=== PATIENT | male | born 1950 | race Caucasian/White ===

== ENCOUNTER 2020-12-29 09:56 | Inpatient (IN) | payer OTHER ==
[~2020-12-29] VITALS: Ht 165.1 cm; Wt 68.8 kg
--- NOTE | ~2020-12-29 | EMS ---
[facility] [address] [facility] [place] [address] EMS Patient Care Report Name: TOOTIE PRIETO Room: [facility]#: [id number] Admission: Attend Phys: Discharge: Date of : 50 Report #: [id number] THIS REPORT FOR: //name// Report Transmitted: 12/29/2020 09:33 EMS Care Summary RIC Myah PRANAV Incident [id number] @ 12/29/2020 09:15 Incident Location [address] [place] [address] Patient TOOTIE PRIETO Male, 70 Years 1950 Patient Address [address] [place] [address] Patient History Chronic Obstructive Pulmonary Disease (COPD),Hypertension (HTN),Myocardial Infarction (ME),Presence of coronary angioplasty implant and graft, Patient Allergies No known allergies, Patient Medications Amlodipine, Atorvastatin, Furosemide, Metoprolol, prednisolone, Chief Complaint Shortness of Breath Disposition Transported No Lights/[place] Reason Breathing Problem Transported To [facility] Narrative Dispatched to address noted for shortness of breath. [facility] en route and on scene at time noted. Arrived and found patient, alert and orient. Patient was sitting up in a chair and stated that him and his have tested positive for [facility] [address] [facility] [place] [address] EMS Patient Care Report Name: TOOTIE PRIETO Room: [facility]#: [id number] Admission: Attend Phys: Discharge: Date of : 50 Report #: [id number] COVID-19 two week ago and have not have any treatment for it. patient has a history of COPD and stated that he has been short of breath for the last 1 week. patients O2 saturation was in the low 80% as noted and lungs where assessed as noted. patient has an obvious fever as well. Patient stated he normally goes to [facility] for care but due to high volume status he agreed to [facility] for care. Patient was able to sit on stretcher and was buckled in. Patient was placed on O2 as noted. Once in ambulance, vitals where taken at time noted. 4 lead ECG obtained and IV with blood labs and blood glucose was obtained as well. Patient was given fluids as noted as well. While en route, vitals where taken at time noted and no major change noted while en route. radio report given at time noted. Arrived and took patient to room 4. Patient was moved to bed and RN was given verbal report. RN signed for patient and patient gave verbal consent. END REPORT EMT-P Jermain Ching Initial Vitals @09:28SpO2: 89, @09:30SpO2: 88, @09:30SpO2: 87, @09:35SpO2: 90, @09:40SpO2: 93, @09:45SpO2: 83, @09:46SpO2: 84, @09:28P: 81,R: 41,BP: 153/71, @09:47P: 79,R: 40,BP: 135/65, @09:62VyOR6: 20, @09:46DpKP0: 22, @09:13RrVI0: 26, @09:08XwLL6: 20, @09:36UhSR2: 21, @09:83BhQU5: 23, @09:25CyFB8: 22, @09:58XaRL3: 21, @09:28GCS: 15, @09:47GCS: 15, @09:21 @09:36Glucose: 115, Assessments @09:21MENTAL:SKIN:HEENT:LUNG SOUNDS:ABDOMEN:PELVIS//GI:EXTREMITIES:PULSE:NEURO: Impression COVID-19 - Confirmed [place] [address] EMS Patient Care Report Name: TOOTIE PRIETO Room: [facility]#: [id number] Admission: Attend Phys: Discharge: Date of : 50 Report #: [id number] @09:25Oxygen Complications: ,Response: Unchanged@09:35 cc () Site: Forearm-LeftResponse: UnchangedSucceeded@09:22LQQK7 digital capnographyResponse: UnchangedSucceeded@09:60RWDC3 digital capnographyResponse: UnchangedSucceeded@09:46PXGR0 digital capnographyResponse: UnchangedSucceeded@09:30NZCX4 digital capnographyResponse: UnchangedSucceeded@09:31DQQJ9 digital capnographyResponse: UnchangedSucceeded@09:04YEGV0 digital capnographyResponse: UnchangedSucceeded@09:15PODP1 digital capnographyResponse: UnchangedSucceeded@09:72UCAB0 digital capnographyResponse: UnchangedSucceeded Timeline 09:15,Call Received 09:15,Dispatch Notified 09:15,Psap Call 09:15,Dispatched 09:15,En Route 09:18,On Scene 09:21,At Patient 09:21,BP: / M,PULSE: ,RR: R,SPO2: Ox,ETCO2: ,BG: ,PAIN: ,GCS: , 09:25,Oxygen Complications: ,,Response: Unchanged 09:28,ETCO2 digital capnography,Response: UnchangedSucceeded, 09:28,BP: / M,PULSE: ,RR: R,SPO2: 89 Ox,ETCO2: ,BG: ,PAIN: ,GCS: , 09:28,BP: 153/71 M,PULSE: 81,RR: 41 R,SPO2: Ox,ETCO2: ,BG: ,PAIN: ,GCS: , 09:28,BP: / M,PULSE: ,RR: R,SPO2: Ox,ETCO2: 20 ,BG: ,PAIN: ,GCS: , 09:28,BP: / M,PULSE: ,RR: R,SPO2: Ox,ETCO2: ,BG: ,PAIN: ,GCS: 15, 09:30,ETCO2 digital capnography,Response: UnchangedSucceeded, 09:30,ETCO2 digital capnography,Response: UnchangedSucceeded, 09:30,BP: / M,PULSE: ,RR: R,SPO2: 88 Ox,ETCO2: ,BG: ,PAIN: ,GCS: , 09:30,BP: / M,PULSE: ,RR: R,SPO2: 87 Ox,ETCO2: ,BG: ,PAIN: ,GCS: , 09:30,BP: / M,PULSE: ,RR: R,SPO2: Ox,ETCO2: 22 ,BG: ,PAIN: ,GCS: , 09:30,BP: / M,PULSE: ,RR: R,SPO2: Ox,ETCO2: 26 ,BG: ,PAIN: ,GCS: , 09:35,ETCO2 digital capnography,Response: UnchangedSucceeded, 09:35,BP: / M,PULSE: ,RR: R,SPO2: 90 Ox,ETCO2: ,BG: ,PAIN: ,GCS: , 09:35,BP: / M,PULSE: ,RR: R,SPO2: Ox,ETCO2: 20 ,BG: ,PAIN: ,GCS: , 09:35, cc Site: Forearm-Left,Response: UnchangedSucceeded, 09:36,BP: / M,PULSE: ,RR: R,SPO2: Ox,ETCO2: ,B,PAIN: ,GCS: , 09:37,Depart Scene 09:40,ETCO2 digital capnography,Response: UnchangedSucceeded, 09:40,BP: / M,PULSE: ,RR: R,SPO2: 93 Ox,ETCO2: ,BG: ,PAIN: ,GCS: , 09:40,BP: / M,PULSE: ,RR: R,SPO2: Ox,ETCO2: 21 ,BG: ,PAIN: ,GCS: , 09:45,ETCO2 digital capnography,Response: UnchangedSucceeded, 09:45,BP: / M,PULSE: ,RR: R,SPO2: 83 Ox,ETCO2: ,BG: ,PAIN: ,GCS: , 09:45,BP: / M,PULSE: ,RR: R,SPO2: Ox,ETCO2: 23 ,BG: ,PAIN: ,GCS: , 09:46,ETCO2 digital capnography,Response: UnchangedSucceeded, 09:46,BP: / M,PULSE: ,RR: R,SPO2: 84 Ox,ETCO2: ,BG: ,PAIN: ,GCS: , 09:46,BP: / M,PULSE: ,RR: R,SPO2: Ox,ETCO2: 22 ,BG: ,PAIN: ,GCS: , [place] [address] EMS Patient Care Report Name: TOOTIE PRIETO Room: [facility].#: [id number] Admission: Attend Phys: Discharge: Date of : 50 Report #: [id number] 09:47,ETCO2 digital capnography,Response: UnchangedSucceeded, 09:47,BP: 135/65 M,PULSE: 79,RR: 40 R,SPO2: Ox,ETCO2: ,BG: ,PAIN: ,GCS: , 09:47,BP: / M,PULSE: ,RR: R,SPO2: Ox,ETCO2: 21 ,BG: ,PAIN: ,GCS: , 09:47,BP: / M,PULSE: ,RR: R,SPO2: Ox,ETCO2: ,BG: ,PAIN: ,GCS: 15, 09:51,At Destination 10:06,Call Closed Disclaimer v1.1 Copyright 2020 [employer] This EMS Care Summary contains data elements from the applicable legal record (which may be displayed differently). It is designed to provide pertinent information for the following purposes: continuity of care, clinical quality, and state data reporting. The complete legal record is available to ED staff and administrators of the receiving hospital in [employer] Patient Tracker. All data is provided "as is."
[2020-12-29 10:00] VITALS: BP 139/69
[2020-12-29 10:24] LABS: ABSOLUTE LYMPHOCYTES 0.8 thou/uL (0.8-5.3); ABSOLUTE MONOCYTES 0.1 thou/uL (0.0-1.2); ABSOLUTE NEUTROPHILS 3.1 thou/uL (1.6-8.1); BASOPHILS 0.2 %; HEMATOCRIT 35.2 % (42.0-52.0); HEMOGLOBIN 11.4 gm/dL (14.0-18.0); LYMPHOCYTES 20.2 %; MCH 28.3 pg (26.0-34.0); MCHC 32.3 g/dL (28.0-37.0); MCV 87.8 fL (80.0-100.0); MONOCYTES 2.9 %; MPV 9.9 fl. (7.2-11.1); NUCLEATED RBCS 0 /100WBC; PLATELET COUNT* 83 thou/uL (150-400); POLYS 76.7 %; RBC 4.01 mil/uL (4.50-6.00); RDW-CV 14.4 % (10.5-14.5); WBC 4.1 thou/uL (4.0-11.0)
[2020-12-29 10:37] LABS: CALCIUM 7.6 mg/dL (8.5-10.1); CREATININE 2.7 mg/dL (0.6-1.3); POTASSIUM 4.7 mmol/L (3.5-5.1)
[2020-12-29] MEDS ORDERED: ASA81BEC PO (10:39)
[2020-12-29] MEDS ORDERED: NORVASC5 MG PO (10:39)
[2020-12-29] MEDS ORDERED: VITAMIN C500 M2 PO (10:39)
[2020-12-29] MEDS ORDERED: VITAMIN B COMP1 EACH PO (10:40)
[2020-12-29] MEDS ORDERED: LIPITOR10 MG PO (10:40)
[2020-12-29] MEDS ORDERED: CENTRUM SPECIA PO (10:41)
[2020-12-29] MEDS ORDERED: BUTALB-ACETAMI1 EAC2 PO (10:41)
[2020-12-29] MEDS ORDERED: VITAMIN D3125 MC1 PO (10:42)
[2020-12-29] MEDS ORDERED: IRON325 M1 PO (10:43)
[2020-12-29] MEDS ORDERED: IPRAT-ALBUT 0.5-3 ML (10:44)
[2020-12-29] MEDS ORDERED: TOPROL XL25 MG PO (10:44)
[2020-12-29] MEDS ORDERED: REMERON30 M1 PO (10:45)
[2020-12-29] MEDS ORDERED: SINGULAIR 10 MG10 M1 PO (10:45)
[2020-12-29] MEDS ORDERED: ONDANSETRON ODT8 MG PO (10:46)
[2020-12-29] MEDS ORDERED: NITROSTAT0.4 M1 (10:47)
[2020-12-29 10:48] LABS: ALBUMIN 2.6 g/dL (3.4-5.0); MAGNESIUM 1.8 mg/dL (1.8-2.4); TOTAL BILIRUBIN 0.1 mg/dL (<0.1-1.0); TOTAL PROTEIN 6.5 g/dL (6.4-8.2)
[2020-12-29] MEDS ORDERED: SERTRALINE HCL100 MG PO (10:49)
[2020-12-29] MEDS ORDERED: sodium chloride PO (10:49)
[2020-12-29] MEDS ORDERED: FLOMAX0.4 MG PO (10:50)
[2020-12-29] MEDS ORDERED: CHOLESTEROL1 GM (10:51)
[2020-12-29] MEDS ORDERED: [UNRECOGNIZED DRUG - OTHER] (10:52)
[2020-12-29] MEDS ORDERED: LORAZEPAM 0.50.5 MG PO (10:52)
[2020-12-29 12:21] VITALS: BP 141/71
[2020-12-29 13:12] VITALS: BP 137/65
[2020-12-29 16:22] VITALS: BP 131/65
--- NOTE | 2020-12-29 17:37 | NUR ---
PT ARRIVED ON UNIT AT 1234 ASSUMED CARE FROM NURSE VARUN. PT IS A/OX4, PLEASANT AND COOPERATIVE. HR IS NSR ON TELE, HE WAS ON 4 L BUT REQURED MORE TO MAINTAIN SATS ABOVE 90% PT WAS PLACE ON 8L HFNC AND IS TOLERATING WELL. PT IS UP WITH SBA BECAUSE OF IV AND OXYGEN. PT HAD NOT VOIDED FROM TIME OF BEING ADMITTED IN ER THIS MORNING UNTIL 1700 AFTER I ASKED HIM TO TRY, HE HAD OUT 550 ML OF CLEAR YELLOW URINE IN HIS URINAL.
[2020-12-29 20:00] VITALS: BP 122/71
[2020-12-30 00:27] VITALS: BP 156/77
[2020-12-30 04:37] VITALS: BP 141/63
[2020-12-30 05:15] LABS: HEMATOCRIT 32.9 % (42.0-52.0); HEMOGLOBIN 11.1 gm/dL (14.0-18.0); MCH 29.3 pg (26.0-34.0); MCHC 33.7 g/dL (28.0-37.0); MCV 86.8 fL (80.0-100.0); MPV 8.7 fl. (7.2-11.1); RBC 3.79 mil/uL (4.50-6.00); RDW-CV 14.4 % (10.5-14.5); WBC 7.3 thou/uL (4.0-11.0)
--- NOTE | 2020-12-30 05:18 | NUR ---
ASSUMED PT CARE AT APPROX 1930. PT IS AWAKE AND ORIENTED X4. PT IS TRACING SR ON THE LASER OPERATOR. O2 SUPPORT INCREASED TO 15L NRB, TO MAINTAIN spO2 >90%, PT DESATS WITH ACTIVITY AND WHEN TALKING. PT IS CLOSELY MONITORED. FALL PRECAUTIONS IN PLACE. CALL LIGHT WITHIN REACH. HOURLY ROUNDING DONE FOR PT SAFETY.
[2020-12-30 05:33] LABS: CALCIUM 8.1 mg/dL (8.5-10.1); CREATININE 2.5 mg/dL (0.6-1.3); POTASSIUM 4.7 mmol/L (3.5-5.1)
[2020-12-30 07:57] VITALS: BP 97/55
--- NOTE | 2020-12-30 10:02 | EKG ---
[place] [address] ELECTROCARDIOGRAM REPORT Name: TOOTIE PRIETO Room: [address] ADM IN .R.#: [id number] Admission: 12/29/20 Attend Phys: Naeem Dolan Discharge: Date of : 50 Date of Service: 12/29/20 1059 Report #: [id number] THIS REPORT FOR: //name// [facility] ED Test Date: 2020-12-29 Test Time: 10:59:09 Pat Name: TOOTIE PRIETO Department: Room: [facility] Gender: M Hop Farmer: CD : 1950 Requested By: Wm Oliva Order Number: [id number] MD: Jas Palacios Measurements Intervals [place] Rate: 81 P: 27 [place]: 186 QRS: 13 QRSD: 182 T: -49 QT: 371 QTc: 431 Interpretive Statements Sinus rhythm Multiple ventricular premature complexes Probable left atrial enlargement Nonspecific intraventricular conduction delay Borderline abnrm T, anterolateral leads No previous ECG available for comparison Electronically Signed On 12-30-2020 10:02:21 CDT by Jas Palacios [email or web address] <ELECTRONICALLY SIGNED> By: Jas Palacios MD, [facility] 12/30/20 1002 1059 1059 Jas Palacios MD, [facility] /EPI
[2020-12-30 12:23] VITALS: BP 95/59
--- NOTE | 2020-12-30 13:53 | NUR ---
CM spoke with Pt's S/O via phone. Pt and SO reside at [facility]. Per SO, she plans to move into her own apartment within the next week. SO plans to continue to help Pt at home with meals. Pt is normally independent. A&O. Per SO, Pt was scheduled to have an appt with a therapist tomorrow, PCP thinks Pt may have dementia. Per SO, Pt is paranoid at times. No DME. No hx of HH or SNF. Pt is vaccinated. On a NRB. Continue steriods and ivabx. Goal is home at [place]. CM following. Jacqueline Salter (SO) [phone] Dionte GonzalesSpears (son)[phone]
[2020-12-30 15:51] VITALS: BP 124/49
--- NOTE | 2020-12-30 18:48 | NUR ---
Pt SOA, coughing early in shift; O2 sats upper 70s to mid 80s. NRB mask added to existing 15L HFC to achieve and maintain O2 sats mid 90s. Pt continues to desat to 80s on 15L HFC alone, especially during meals, so NRB mask on for most of shift. Pt's diet changed to accommodate intolerance/allergy to glutein, eggs, and dairy. Pt reports more comfortable today with added O2 (via NRB mask). Otherwise, VSS. Will continue to monitor.
[2020-12-30 19:30] VITALS: BP 132/67
[2020-12-31] VITALS: BP 130/55
[2020-12-31 04:00] VITALS: BP 128/68
--- NOTE | 2020-12-31 05:30 | NUR ---
PT SLEPT ON AND OFF THIS SHIFT. ASSESSMENT DOCUMENTED. MEDS GIVEN PER E-MAR. IV PATENT. NO REPORTS OF PAIN. PTS O2 NEEDS INCREASED FROM 15L NC WITH 15L NRB TO HHFNC 55L AT 100%. PT STARTED DESATTING AGAIN AND SOUNDED REALLY COARSE, NOTIFIED, ORDERS RECIEVED. PT CONTINUED TO DESAT RUNNING 83-85%, NOTIFIED, PT PLACED ON BIPAP. PRN ANXIETY MEDS GIVEN PER E-MAR WITH SOME RELIEF. CALL LIGHT WITHIN REACH, PT ABLE TO MAKE NEEDS KNOWN. WILL CONTINUE WITH PLAN OF CARE.
[2020-12-31 06:05] LABS: HEMOGLOBIN 10.4 gm/dL (14.0-18.0); MCH 28.8 pg (26.0-34.0); MCHC 33.5 g/dL (28.0-37.0); MCV 85.7 fL (80.0-100.0); MPV 9.3 fl. (7.2-11.1); RBC 3.62 mil/uL (4.50-6.00); RDW-CV 14.6 % (10.5-14.5)
[2020-12-31 06:30] LABS: CREATININE 2.6 mg/dL (0.6-1.3); POTASSIUM 4.7 mmol/L (3.5-5.1)
[2020-12-31 08:00] VITALS: BP 123/60
[2020-12-31 12:00] VITALS: BP 121/63
--- NOTE | 2020-12-31 14:02 | NUR ---
Covid positive.On 55L fio2 100%. DPOA completed, on chart, Pt appointed his son.
[2020-12-31 16:00] VITALS: BP 121/67
[2020-12-31 20:00] VITALS: BP 124/59
[2021-01-01 00:12] VITALS: BP 121/61
[2021-01-01 03:56] VITALS: BP 100/45
--- NOTE | 2021-01-01 04:54 | NUR ---
PT SLEPT ON AND OFF THIS SHIFT. ASSESSMENT DOCUMENTED. MEDS GIVEN PER E-JUL. IV PATENT. NO REPORTS OF PAIN. FALL PRECAUTIONS IN PLACE. PT ON HEATED HIGH FLOW NC AT 55L 100%, PT DESATS IN SLEEP TO LOW 80'S. PT REFUSING BIPAP, PT ENCOURAGED TO SLEEP PRONE OR ON SIDE. PTS O2 SATS INCREASE WHEN ON SIDE. PT ABLE TO MAKE NEEDS KNOWN. WILL CONTINUE WITH PLAN OF CARE.
[2021-01-01 07:14] LABS: HEMATOCRIT 32.5 % (42.0-52.0); HEMOGLOBIN 10.6 gm/dL (14.0-18.0); MCH 28.3 pg (26.0-34.0); MCHC 32.8 g/dL (28.0-37.0); MCV 86.2 fL (80.0-100.0); MPV 9.1 fl. (7.2-11.1); RBC 3.77 mil/uL (4.50-6.00); RDW-CV 14.4 % (10.5-14.5); WBC 8.3 thou/uL (4.0-11.0)
[2021-01-01 07:32] LABS: CALCIUM 8.1 mg/dL (8.5-10.1); CREATININE 2.6 mg/dL (0.6-1.3); POTASSIUM 4.6 mmol/L (3.5-5.1)
[2021-01-01 07:41] VITALS: BP 104/42
[2021-01-01 13:19] VITALS: BP 127/86
--- NOTE | 2021-01-01 13:31 | NUR ---
[facility] POSITIVE [facility] ANTIGEN TEST ON 12/22/20.
--- NOTE | 2021-01-01 14:35 | NUR ---
Covid positive. Anticipate dc in a few days. On 55L HHF. Bipap prn. Continue to wean
[2021-01-01 16:00] VITALS: BP 141/70
--- NOTE | 2021-01-01 18:49 | NUR ---
PT ALERT WITH SOME CONFUSION, PLEASANT AND COOPERATIVE. VSS, HE HAS BEEN UP IN HIS CHAIR THIS SHIFT, DENIES C/O PAIN OR DISCOMFORT.
[2021-01-01 19:10] VITALS: BP 133/65
[2021-01-02] VITALS: BP 145/65
--- NOTE | 2021-01-02 00:06 | NUR ---
ASSUMED CARE OF PT AT 1900. PT IS ALERT AND ORIENTED. VSS. PERRLA. NO COMPLAINTS OF PAIN. PT IS ON 95 PERCENT HEATED HIGH FLOW. PT IS IN SINUS RYTHM ON THE TELEMETRY. PT IS RESTING COMFORTABLY IN BED. RESPIRATIONS ARE EVEN AND NONLABORED. WILL CONTINUE TO MONITOR PT.
[2021-01-02 04:00] VITALS: BP 120/53
[2021-01-02 08:23] VITALS: BP 119/62
[2021-01-02 12:20] VITALS: BP 140/63
--- NOTE | 2021-01-02 13:31 | NUR ---
Covid positive. Will be inpt for several more days. Pt on 55L HHF, 96% fio2
[2021-01-02 19:50] VITALS: BP 121/65
--- NOTE | 2021-01-02 19:57 | NUR ---
Unable to place peripheral IV. PICC line initially ordered, but contraindicated due to renal function. Central line (RIJ) placed per surgery. Ferguson through procedure, pt began to desat to 70s, then to 60s. Pt did not tolerate trendelenberg position. Once central line placed, pt repositioned to semi-fowlers position but continued to hav low O2 sats in 70s. Once line sutured in, placed NRB mask over HHF but O2 sats [id number] to low 80s. Convinced patient to wear BIPAP until pt recovers. O2 sats mid to upper 90s on BIPAP. Pt remained on BIPAP for approx 3 hours, then back on HHF. Pt reports feeling much better by late afternoon. VSS. Central line placement confirmed per CXR. Will continue to monitor.
[2021-01-03] VITALS: BP 151/78
--- NOTE | 2021-01-03 01:31 | NUR ---
ASSUMED CARE OF PT AT 1900. PT IS ALERT AND ORIENTED. VSS. PERRLA. PT IS VERY SOA WHILE HE IS AWAKE. MANY TIMES DESATURATING INTO THE 70'S WITH ANY ACTIVITY. PT REFUSES BIPAP. PT IS IN SINUS RYTHM ON THE TELEMETRY. PT IS RESTING COMFORTABLY IN BED. RESPIRATIONS ARE EVEN AND NONLABORED. WILL CONTINUE TO MONITOR PT.
[2021-01-03 04:28] VITALS: BP 147/64
[2021-01-03 08:25] VITALS: BP 130/63
[2021-01-03 11:16] LABS: HEMATOCRIT 29.6 % (42.0-52.0); HEMOGLOBIN 9.7 gm/dL (14.0-18.0); MCH 28.1 pg (26.0-34.0); MCHC 32.7 g/dL (28.0-37.0); MCV 86.1 fL (80.0-100.0); MPV 8.4 fl. (7.2-11.1); NUCLEATED RBCS 0 /100WBC; PLATELET COUNT* 158 thou/uL (150-400); RBC 3.44 mil/uL (4.50-6.00); RDW-CV 14.4 % (10.5-14.5); WBC 9.5 thou/uL (4.0-11.0)
[2021-01-03 11:24] LABS: CALCIUM 8.1 mg/dL (8.5-10.1); CREATININE 2.9 mg/dL (0.6-1.3); POTASSIUM 3.9 mmol/L (3.5-5.1)
[2021-01-03 11:45] LABS: ABSOLUTE LYMPHOCYTES 0.6 thou/uL (0.8-5.3); ABSOLUTE NEUTROPHILS 8.9 thou/uL (1.6-8.1)
[2021-01-03 11:46] LABS: HYPOCHROMASIA 1+; PLATELET ESTIMATE ADEQUATE
[2021-01-03 11:47] LABS: BURR CELLS Occasional; MICROCYTES Occasional
[2021-01-03 12:15] VITALS: BP 142/67
--- NOTE | 2021-01-03 15:49 | NUR ---
Covid positive. Anticipate dc in a few days. On 55L, 97% fio2
[2021-01-03 16:12] VITALS: BP 126/59
--- NOTE | 2021-01-03 19:19 | NUR ---
Pt reports having a better day today. C/O pain to R side of head and R ear R/T positioning required for placement of IJ yesterday (see JUL). Up in chair for much of shift. VSS. On BIPAP for approx 2 hours this afternoon; tolerated well. Will continue to monitor.
[2021-01-03 19:50] VITALS: BP 120/54
[2021-01-04] VITALS (11 sets, daily range): BP systolic 100–171; BP diastolic 48–75
--- NOTE | 2021-01-04 02:50 | NUR ---
ASSUMED CARE OF PT AT 1900. PT IS ALERT AND ORIENTED. VSS. PERRLA. NO COMPLAINTS OF PAIN. PT WAS A 100 PERCENT FIO2 HEATED HIGH FLOW. PT IS NOW ON BIPAP SINCE ABOUT 2129. PT IS ON SINUS RYTHM ON THE TELEMETRY. PT IS RESTING COMFORTABLY IN BED. RESPIRATIONS ARE EVEN AND NONLABORED. WILL CONTINUE TO MONITOR PT.
--- NOTE | 2021-01-04 04:00 | NUR ---
PT IS NOW REFUSING TO WEAR BIPAP. PT IS BACK ON HEATED HIGH FLOW. 100 PERCENT FIO2 AND SPO2 IN THE 80'S.
[2021-01-04 07:07] LABS: BE -8.1 mmol/L (-2 to +3); PCO2 29.9 mmHg (35.0-45.0); pH 7.347 (7.340-7.450)
[2021-01-04 07:09] LABS: PO2 163.8 mmHg (75.0-100.0)
[2021-01-04 07:12] LABS: HEMATOCRIT 29.1 % (42.0-52.0); HEMOGLOBIN 9.5 gm/dL (14.0-18.0); MCHC 32.8 g/dL (28.0-37.0); MCV 85.3 fL (80.0-100.0); MPV 7.9 fl. (7.2-11.1); RBC 3.41 mil/uL (4.50-6.00); RDW-CV 13.9 % (10.5-14.5); WBC 12.5 thou/uL (4.0-11.0)
[2021-01-04 07:22] LABS: CREATININE 2.5 mg/dL (0.6-1.3); POTASSIUM 4.6 mmol/L (3.5-5.1)
[2021-01-04 07:27] LABS: ALBUMIN 1.7 g/dL (3.4-5.0); TOTAL BILIRUBIN 0.5 mg/dL (<0.1-1.0); TOTAL PROTEIN 5.5 g/dL (6.4-8.2)
--- NOTE | 2021-01-04 12:45 | NUR ---
Patient anxious and restless; improves somewhat with lorazepam. Required much convincing to wear BIPAP; desats to 70s & 80s on HHF @ max settings. Dr. Dolan rounded this morning, received order for IV furosemide one time dose. By late morning pt anxiety and resltessness worsening significantly. Dr. Dye consulted this morning; orders received for transfer to ICU for Precedex gtt for BIPAP tolerance. Otherwise, will intubate if needed. Pt transferred to ICU. Son updated of plan, pt status.
[2021-01-04 14:44] LABS: BE -7.3 mmol/L (-2 to +3); PCO2 36.4 mmHg (35.0-45.0); pH 7.316 (7.340-7.450)
[2021-01-04 14:52] LABS: PO2 134.5 mmHg (75.0-100.0)
[2021-01-05] VITALS (151 sets, daily range): BP systolic 90–142; BP diastolic 36–57
--- NOTE | 2021-01-05 08:04 | NUR ---
ASSESSMENT COMPLETED CHARTED. PT PUPILS UNEVEN. LEFT 2 ROUND/ RIGHT PUPIL IS OBLONG/OVAL AND NON-REACTIVE. PHYSICIAN NOTIFIED. ORDER RECEIVED FOR ROUTINE CONSULT TO NEUROLOGY. CONSULT CALLED IN AM. PT BP LOW, LEVOPHED STARTED AND TITRATED PER ORDERS. ROUNDING COMPLETED. NEEDS MET.
--- NOTE | 2021-01-05 12:19 | NUR ---
TOOK OVER PT CARE AT 0700. UPON INITIAL ASSESSMENT PT HAD NO CORNEAL REFLEX, HAD COUGH & GAG. UNABLE TO ILLICIT ANY MOTOR RESPONSE, R. PUPIL IS OVAL IN SHAPE WHILE L. PUPIL IS PINPOINT WITH NO REACTION. DR. ACOSTA AT BEDSIDE FOR INITIAL CONSULT. D/T LACK OF NEURO EXAM DR. ACOSTA ASKED FOR A SEDATION VACATION. ALL SEDATION WAS PAUSED AT 0920, HOURLY ASSESSMENTS WERE THEN PERFORMED. DR. ACOSTA CALLED AT 1030, THERE WERE NO CHANGES IN THE NEURO EXAM. 1120, CORNEAL/COUGH/GAG REFLEXES INTACT, STILL NO MOTOR RESPONSE. DR. ACOSTA AGAIN AT BEDSIDE, 1140, AGREES WITH ASSESSMENT. WILL RESTART SEDATION AT A LOWER RATE TO MAXIMIZE VENTILATION. VERSED WAS RESTARTED AT 2MG/HR, WILL CONTINUE TO ASSESS FOR FURTHER SEDATION NEEDS.
[2021-01-06] VITALS (116 sets, daily range): BP systolic 96–133; BP diastolic 39–57
[2021-01-06 12:39] LABS: ABSOLUTE BASOPHILS 0.1 thou/uL (0.0-0.2); ABSOLUTE LYMPHOCYTES 0.1 thou/uL (0.8-5.3); ABSOLUTE MONOCYTES 0.3 thou/uL (0.0-1.2); ABSOLUTE NEUTROPHILS 15.3 thou/uL (1.6-8.1); BASOPHILS 0.5 %; HEMATOCRIT 24.8 % (42.0-52.0); HEMOGLOBIN 8.1 gm/dL (14.0-18.0); LYMPHOCYTES 0.8 %; MCHC 32.9 g/dL (28.0-37.0); MCV 85.2 fL (80.0-100.0); MPV 7.9 fl. (7.2-11.1); NUCLEATED RBCS 0 /100WBC; RBC 2.91 mil/uL (4.50-6.00); RDW-CV 14.9 % (10.5-14.5); WBC 15.8 thou/uL (4.0-11.0)
[2021-01-06 12:50] LABS: ALBUMIN 1.5 g/dL (3.4-5.0); CALCIUM 6.9 mg/dL (8.5-10.1); POTASSIUM 5.5 mmol/L (3.5-5.1); TOTAL BILIRUBIN 0.3 mg/dL (<0.1-1.0); TOTAL PROTEIN 4.7 g/dL (6.4-8.2)
[2021-01-06 13:04] LABS: PLATELET ESTIMATE ADEQUATE
[2021-01-06 13:07] LABS: CREATININE 7.4 mg/dL (0.6-1.3)
[2021-01-06 13:10] LABS: PLATELET COUNT* 20 thou/uL (150-400)
--- NOTE | 2021-01-06 14:28 | NUR ---
Nutrition: RECOMMEND VITAL HP @ GOAL RATE 65mL/HR. SEE RD ASSESSMENT FORM FOR DETAILS.
--- NOTE | 2021-01-06 16:10 | NUR ---
ICU ROUNDS: PT CONT WITH VENT AND SEDATION. PT ON NOREPINEPHRINE FOR BP SUPPORT.
--- NOTE | 2021-01-06 17:22 | 2DMMODE ---
[place] [address] 2 D/M-MODE ECHOCARDIOGRAM Name: TOOTIE PRIETO Room: [address] IN [facility]#: [id number] Admission: 12/29/20 Attend Phys: Naeem Dolan Discharge: Date of : 50 Date of Service: 01/06/21 1722 Report #: [id number] THIS REPORT FOR: cc: FAM - No family physician/PCP FAM - No family physician/PCP Jas Palacios MD [facility] ~ APPROVED REPORT Study performed: 01/06/2021 15:49:36 EXAM: Comprehensive 2D, Doppler, and color-flow Echocardiogram Patient Location: In-Patient Room #: 002 Status: routine BSA: 1.70 HR: 101 bpm BP: 107/48 mmHg Rhythm: NSR Other Information Study Quality: Excellent Indications Septic Shock 2D Dimensions IVSd: 13.66 (7-11mm) LVOT Diam: 20.48 (18-24mm) LVDd: 51.56 mm PWd: 13.60 (7-11mm) LVDs: 34.39 (25-40mm) Aortic Root: 31.76 mm Volumes Left Atrial Volume (Systole) LA ESV Index: 31.00 mL/m2 Aortic Valve AoV Peak Josue.: 1.78 m/s AO Peak Gr.: 12.74 mmHg LVOT Max P.48 mmHg AO Mean Gr.: 7.14 mmHg LVOT Mean P.80 mmHg LVOT Max V: 1.17 m/s AO V2 VTI: 30.28 cm LVOT Mean V: 0.78 m/s DARRON (VTI): 2.16 cm2 LVOT V1 VTI: 19.85 [place] [address] 2 D/M-MODE ECHOCARDIOGRAM Name: TOOTIE PRIETO Room: [address]#: [id number] Admission: 12/29/20 Attend Phys: Naeem Dolan Discharge: Date of : 50 Date of Service: 01/06/21 1722 Report #: [id number] Mitral Valve E/A Ratio: 1.44 MV Decel. Time: 149.18 ms MV E Max Josue.: 1.24 m/s MV PHT: 43.26 ms MVA (PHT): 5.09 cm2 TDI E/Lateral E': 11.27 E/Medial E': 13.78 Medial E' Josue.: 0.09 m/s Lateral E' Josue.: 0.11 m/s Left Ventricle The left ventricle is normal size. There is normal LV segmental wall motion. Mild concentric left ventricular hypertrophy. Left ventricular systolic function is normal. The left ventricular ejection fraction is within the normal range. LVEF is 55-60%. Right Ventricle The right ventricle is normal size. The right ventricular systolic function is normal. Atria Left atrium is mildly dilated. The right atrium size is normal. Aortic Valve Mild aortic valve sclerosis. trace aortic regurgitation is present. There is no aortic valvular stenosis. Mitral Valve The mitral valve is normal in structure. Mild mitral regurgitation. No evidence of mitral valve stenosis. Tricuspid Valve The tricuspid valve is normal in structure. Trace tricuspid regurgitation. Unable to assess PA pressure. Pulmonic Valve The pulmonary valve is normal in structure. There is no pulmonic valvular regurgitation. Great Vessels The aortic root is normal in size. IVC is normal in size and collapses >50% [place] [address] 2 D/M-MODE ECHOCARDIOGRAM Name: TOOTIE PRIETO Room: [address]#: [id number] Admission: 12/29/20 Attend Phys: Naeem Dolan Discharge: Date of : 50 Date of Service: 01/06/21 1722 Report #: [id number] Pericardium There is no pericardial effusion. <Conclusion> Mild concentric left ventricular hypertrophy. LVEF is 55-60%. Left atrium is mildly dilated. Mild aortic valve sclerosis. Mild mitral regurgitation. <ELECTRONICALLY SIGNED> By: Jas Palacios MD, FACC 01/06/211721 21 21 Jas Palacios MD, [facility] /INF
[2021-01-06 17:35] LABS: BE -13.3 mmol/L (-2 to +3); PO2 VENOUS 140.8 mmHg (35.0-45.0)
[2021-01-06 17:43] LABS: ABSOLUTE BASOPHILS 0.1 thou/uL (0.0-0.2); ABSOLUTE LYMPHOCYTES 0.1 thou/uL (0.8-5.3); ABSOLUTE MONOCYTES 0.2 thou/uL (0.0-1.2); ABSOLUTE NEUTROPHILS 13.8 thou/uL (1.6-8.1); BASOPHILS 0.6 %; EOSINOPHILS 0.1 %; HEMATOCRIT 22.1 % (42.0-52.0); HEMOGLOBIN 7.2 gm/dL (14.0-18.0); LYMPHOCYTES 0.6 %; MCHC 32.5 g/dL (28.0-37.0); MONOCYTES 1.1 %; MPV 7.1 fl. (7.2-11.1); NUCLEATED RBCS 0 /100WBC; POLYS 97.6 %; RBC 2.57 mil/uL (4.50-6.00); RDW-CV 14.9 % (10.5-14.5); WBC 14.2 thou/uL (4.0-11.0)
[2021-01-06 17:45] LABS: PLATELET COUNT* 12 thou/uL (150-400)
[2021-01-06 17:47] LABS: APTT 45.1 Seconds (25.0-31.3); INR 1.6; PROTIME 16.7 Seconds (9.20-11.50)
[2021-01-06 17:50] LABS: CALCIUM 6.8 mg/dL (8.5-10.1); CREATININE 7.6 mg/dL (0.6-1.3); MAGNESIUM 2.3 mg/dL (1.8-2.4); POTASSIUM 5.5 mmol/L (3.5-5.1)
[2021-01-06 21:00] LABS: ABSOLUTE BASOPHILS 0.2 thou/uL (0.0-0.2); ABSOLUTE LYMPHOCYTES 0.1 thou/uL (0.8-5.3); ABSOLUTE MONOCYTES 0.3 thou/uL (0.0-1.2); ABSOLUTE NEUTROPHILS 14.4 thou/uL (1.6-8.1); BASOPHILS 1.2 %; EOSINOPHILS 0.1 %; HEMATOCRIT 21.3 % (42.0-52.0); LYMPHOCYTES 0.7 %; MCH 27.7 pg (26.0-34.0); MCHC 32.6 g/dL (28.0-37.0); MCV 85.1 fL (80.0-100.0); MONOCYTES 1.8 %; MPV 7.5 fl. (7.2-11.1); NUCLEATED RBCS 0 /100WBC; POLYS 96.2 %; RBC 2.51 mil/uL (4.50-6.00); RDW-CV 14.9 % (10.5-14.5); WBC 14.9 thou/uL (4.0-11.0)
[2021-01-06 21:07] LABS: HEMOGLOBIN 6.9 gm/dL (14.0-18.0); PLATELET COUNT* 13 thou/uL (150-400)
[2021-01-06 21:13] LABS: CALCIUM 6.9 mg/dL (8.5-10.1); CREATININE 7.8 mg/dL (0.6-1.3); MAGNESIUM 2.3 mg/dL (1.8-2.4); POTASSIUM 5.6 mmol/L (3.5-5.1)
[2021-01-06 23:06] LABS: BE -11.8 mmol/L (-2 to +3); PCO2 VENOUS 31.7 mmHg (41.0-51.0); PO2 VENOUS 110.1 mmHg (35.0-45.0)
[2021-01-07] VITALS (132 sets, daily range): BP systolic 107–145; BP diastolic 44–76
[2021-01-07 06:15] LABS: HEMATOCRIT 20.7 % (42.0-52.0); MCH 28.7 pg (26.0-34.0); MCHC 33.3 g/dL (28.0-37.0); MCV 86.2 fL (80.0-100.0); NUCLEATED RBCS 0 /100WBC; RBC 2.41 mil/uL (4.50-6.00)
[2021-01-07 06:19] LABS: PLATELET COUNT* 65 thou/uL (150-400)
[2021-01-07 06:21] LABS: HEMOGLOBIN 6.9 gm/dL (14.0-18.0)
[2021-01-07 06:28] LABS: URINE BILIRUBIN NEGATIVE (Negative); URINE BLOOD 3+ (Negative); URINE CLARITY CLEAR; URINE COLOR YELLOW; URINE GLUCOSE-RANDOM TRACE (Negative); URINE KETONES NEGATIVE (Negative); URINE LEUKOCYTES-REFLEX NEGATIVE (Negative); URINE NITRITE-REFLEX NEGATIVE (Negative); URINE PROTEIN 2+ (Negative); URINE UROBILINOGEN 0.2 E.U./dl (0.2-1.0)
[2021-01-07 06:31] LABS: ALBUMIN 2.2 g/dL (3.4-5.0); CALCIUM 6.8 mg/dL (8.5-10.1); CREATININE 7.9 mg/dL (0.6-1.3); MAGNESIUM 2.2 mg/dL (1.8-2.4); PHOSPHORUS* 5.1 mg/dL (2.5-4.9); POTASSIUM 5.2 mmol/L (3.5-5.1); TOTAL BILIRUBIN 0.7 mg/dL (<0.1-1.0); TOTAL PROTEIN 4.7 g/dL (6.4-8.2)
[2021-01-07 06:36] LABS: FINE GRANULAR CASTS 0-3 Few /LPF (None Seen); MUCUS 0-3 Light strn/LPF (None Seen); SQUAMOUS 0-3 Few /LPF (0-3); URINE WBC-REFLEX 0-5 Rare /HPF (0-5)
[2021-01-07 06:37] LABS: AMORPHOUS URATES Moderate /LPF (None Seen); COARSE GRANULAR CASTS 4-10 Moderate /LPF (None Seen)
[2021-01-07 07:25] LABS: ABSOLUTE LYMPHOCYTES 0.2 thou/uL (0.8-5.3); ABSOLUTE NEUTROPHILS 15.8 thou/uL (1.6-8.1)
[2021-01-07 07:26] LABS: ANISOCYTOSIS 1+; HYPOCHROMASIA 1+; OVALOCYTES 1+; PLATELET ESTIMATE DECREASED; POIKILOCYTOSIS 1+
[2021-01-07 08:57] LABS: BE -8.5 mmol/L (-2 to +3); pH 7.361 (7.340-7.450)
[2021-01-07 08:59] LABS: PO2 59.4 mmHg (75.0-100.0)
--- NOTE | 2021-01-07 17:10 | NUR ---
Case and plan of care reviewed with MD each weekday during patient's length of stay. Continue plan of care per MD orders for current dx. Remains on vent, IV Precedex/Levo gtts. Discuss may require CRRT.
[2021-01-07 17:16] LABS: ABSOLUTE BASOPHILS 0.2 thou/uL (0.0-0.2); ABSOLUTE LYMPHOCYTES 0.1 thou/uL (0.8-5.3); ABSOLUTE MONOCYTES 0.4 thou/uL (0.0-1.2); ABSOLUTE NEUTROPHILS 16.8 thou/uL (1.6-8.1); BASOPHILS 1.1 %; HEMATOCRIT 25.7 % (42.0-52.0); HEMOGLOBIN 8.5 gm/dL (14.0-18.0); LYMPHOCYTES 0.8 %; MCH 28.9 pg (26.0-34.0); MCHC 33.2 g/dL (28.0-37.0); MONOCYTES 2.1 %; MPV 9.9 fl. (7.2-11.1); NUCLEATED RBCS 0 /100WBC; RBC 2.95 mil/uL (4.50-6.00); RDW-CV 14.7 % (10.5-14.5); WBC 17.5 thou/uL (4.0-11.0)
[2021-01-07 17:25] LABS: CALCIUM 6.6 mg/dL (8.5-10.1); CREATININE 8.2 mg/dL (0.6-1.3); MAGNESIUM 2.3 mg/dL (1.8-2.4)
[2021-01-07 17:29] LABS: PLATELET COUNT* 30 thou/uL (150-400)
[2021-01-08] VITALS (95 sets, daily range): BP systolic 86–128; BP diastolic 37–53
[2021-01-08 00:20] LABS: CALCIUM 7.4 mg/dL (8.5-10.1); MAGNESIUM 2.1 mg/dL (1.8-2.4); POTASSIUM 5.2 mmol/L (3.5-5.1)
[2021-01-08 00:24] LABS: CREATININE 5.8 mg/dL (0.6-1.3)
[2021-01-08 05:07] LABS: ABSOLUTE BASOPHILS 0.1 thou/uL (0.0-0.2); ABSOLUTE LYMPHOCYTES 0.2 thou/uL (0.8-5.3); ABSOLUTE MONOCYTES 0.6 thou/uL (0.0-1.2); ABSOLUTE NEUTROPHILS 18.6 thou/uL (1.6-8.1); BASOPHILS 0.5 %; HEMATOCRIT 25.3 % (42.0-52.0); HEMOGLOBIN 8.6 gm/dL (14.0-18.0); MCH 29.2 pg (26.0-34.0); MCHC 33.8 g/dL (28.0-37.0); MCV 86.2 fL (80.0-100.0); MPV 10.4 fl. (7.2-11.1); NUCLEATED RBCS 1 /100WBC; POLYS 95.5 %; RBC 2.93 mil/uL (4.50-6.00); RDW-CV 14.9 % (10.5-14.5); WBC 19.4 thou/uL (4.0-11.0)
[2021-01-08 05:17] LABS: PLATELET COUNT* 18 thou/uL (150-400)
[2021-01-08 05:21] LABS: APTT 40.6 Seconds (25.0-31.3); INR 1.5; PROTIME 15.1 Seconds (9.20-11.50)
[2021-01-08 06:25] LABS: ALBUMIN 1.8 g/dL (3.4-5.0); CALCIUM 7.5 mg/dL (8.5-10.1); MAGNESIUM 1.9 mg/dL (1.8-2.4); POTASSIUM 5.1 mmol/L (3.5-5.1); TOTAL BILIRUBIN 0.9 mg/dL (<0.1-1.0); TOTAL PROTEIN 4.7 g/dL (6.4-8.2)
[2021-01-08 06:26] LABS: CREATININE 4.3 mg/dL (0.6-1.3)
--- NOTE | 2021-01-08 08:41 | NUR ---
Case and plan of care reviewed with MD each weekday during patient's length of stay. Continue plan of care per MD orders for current dx. Pending MRI/CT abd, US abd due instability in condition. VEnt 90 % FiO2, IV gtts sedation/pressor, Insulin. Remdesivir and Abx. Temp HD cath plced 01/07/21 Will continue to follow for DC needs
[2021-01-08 11:19] LABS: BE -2.1 mmol/L (-2 to +3); PCO2 VENOUS 46.1 mmHg (41.0-51.0); PO2 VENOUS 127.4 mmHg (35.0-45.0)
[2021-01-08 11:34] LABS: CALCIUM 7.5 mg/dL (8.5-10.1); CREATININE 3.4 mg/dL (0.6-1.3); MAGNESIUM 1.8 mg/dL (1.8-2.4); POTASSIUM 4.9 mmol/L (3.5-5.1)
[2021-01-08 15:08] LABS: HEPATITIS B SURFACE AG Negative (Negative)
[2021-01-08 18:25] LABS: CALCIUM 7.4 mg/dL (8.5-10.1); PHOSPHORUS* 6.2 mg/dL (2.5-4.9)
[2021-01-08 18:27] LABS: POTASSIUM 5.9 mmol/L (3.5-5.1)
[2021-01-08 19:00] LABS: BE -3.3 mmol/L (-2 to +3); PCO2 VENOUS 52.3 mmHg (41.0-51.0); PO2 VENOUS 190.4 mmHg (35.0-45.0)
[2021-01-09] VITALS (82 sets, daily range): BP systolic 83–124; BP diastolic 41–57
[2021-01-09 01:37] LABS: ALBUMIN 2.5 g/dL (3.4-5.0); CALCIUM 7.7 mg/dL (8.5-10.1); CREATININE 2.7 mg/dL (0.6-1.3); MAGNESIUM 1.9 mg/dL (1.8-2.4); PHOSPHORUS* 4.5 mg/dL (2.5-4.9); TOTAL BILIRUBIN 0.9 mg/dL (<0.1-1.0)
[2021-01-09 01:41] LABS: POTASSIUM 6.2 mmol/L (3.5-5.1)
[2021-01-09 06:17] LABS: ABSOLUTE BASOPHILS 0.3 thou/uL (0.0-0.2); ABSOLUTE LYMPHOCYTES 0.2 thou/uL (0.8-5.3); ABSOLUTE MONOCYTES 0.6 thou/uL (0.0-1.2); ABSOLUTE NEUTROPHILS 19.6 thou/uL (1.6-8.1); BASOPHILS 1.4 %; LYMPHOCYTES 0.7 %; MCV 87.7 fL (80.0-100.0); MPV 8.1 fl. (7.2-11.1); NUCLEATED RBCS 1 /100WBC; POLYS 94.9 %; RBC 2.11 mil/uL (4.50-6.00); WBC 20.6 thou/uL (4.0-11.0)
[2021-01-09 06:28] LABS: INR 1.6; PROTIME 16.1 Seconds (9.20-11.50)
[2021-01-09 06:45] LABS: HEMOGLOBIN 6.1 gm/dL (14.0-18.0)
[2021-01-09 06:46] LABS: HEMATOCRIT 18.5 % (42.0-52.0); PLATELET COUNT* 23 thou/uL (150-400)
[2021-01-09 12:25] LABS: BE -3.1 mmol/L (-2 to +3); PCO2 VENOUS 53.8 mmHg (41.0-51.0); PO2 VENOUS 73.5 mmHg (35.0-45.0)
[2021-01-09 12:26] LABS: HEMATOCRIT 22.2 % (42.0-52.0); HEMOGLOBIN 7.2 gm/dL (14.0-18.0); MCH 28.5 pg (26.0-34.0); MCHC 32.4 g/dL (28.0-37.0); MCV 87.9 fL (80.0-100.0); MPV 7.2 fl. (7.2-11.1); RBC 2.53 mil/uL (4.50-6.00); RDW-CV 14.7 % (10.5-14.5); WBC 20.5 thou/uL (4.0-11.0)
[2021-01-09 12:42] LABS: CALCIUM 7.8 mg/dL (8.5-10.1); POTASSIUM 5.5 mmol/L (3.5-5.1)
--- NOTE | 2021-01-09 15:59 | NUR ---
Case and plan of care reviewed with MD. Continue plan of care per MD orders for current dx. Pt remians on Vent 100% FiO2. IV gtt sedation.
[2021-01-09 17:04] LABS: PCO2 VENOUS 59.1 mmHg (41.0-51.0); PO2 VENOUS 65.9 mmHg (35.0-45.0)
[2021-01-09 17:06] LABS: HEPATITIS B SURFACE AG Negative (Negative)
[2021-01-09 17:19] LABS: CALCIUM 7.8 mg/dL (8.5-10.1); MAGNESIUM 1.9 mg/dL (1.8-2.4); PHOSPHORUS* 5.3 mg/dL (2.5-4.9); POTASSIUM 5.1 mmol/L (3.5-5.1)
[2021-01-09 18:52] LABS: HEMATOCRIT 21.2 % (42.0-52.0); HEMOGLOBIN 7.1 gm/dL (14.0-18.0); MCH 29.1 pg (26.0-34.0); MCHC 33.4 g/dL (28.0-37.0); MPV 8.3 fl. (7.2-11.1); RBC 2.43 mil/uL (4.50-6.00); RDW-CV 15.1 % (10.5-14.5); WBC 24.1 thou/uL (4.0-11.0)
[2021-01-09 22:12] LABS: BE -3.5 mmol/L (-2 to +3); PCO2 VENOUS 54.2 mmHg (41.0-51.0); PO2 VENOUS 70.4 mmHg (35.0-45.0)
[2021-01-10] VITALS (69 sets, daily range): BP systolic 82–151; BP diastolic 29–55
[2021-01-10 00:42] LABS: HEMATOCRIT 25.1 % (42.0-52.0); HEMOGLOBIN 8.3 gm/dL (14.0-18.0); MCV 87.9 fL (80.0-100.0); MPV 8.3 fl. (7.2-11.1); RBC 2.85 mil/uL (4.50-6.00); RDW-CV 15.1 % (10.5-14.5); WBC 25.4 thou/uL (4.0-11.0)
[2021-01-10 01:46] LABS: CALCIUM 7.8 mg/dL (8.5-10.1); MAGNESIUM 1.9 mg/dL (1.8-2.4); PHOSPHORUS* 5.2 mg/dL (2.5-4.9); POTASSIUM 4.7 mmol/L (3.5-5.1)
--- NOTE | 2021-01-10 04:30 | NUR ---
ASSUMED CARE AT 1900H, ON VENT AT 100% WITH O2 SAT OF 80-84%. SEDATED WITH VERSED, PRECEDEX AND FENTANYL DRIP, TITRATED. ON LEVO AT 10MICS AND TITRATED. SEE PT NOT IN SYNC WITH THE VENT, O2 SAT KEPT ON DECREASING. PULMO AWARE WITH ORDERS MADE AND CARRIED OUT. 1 PRBC AND PLATELET GIVEN. CRRT CLOTTED, NEPHRO INFORMED AND CRRT HELD AND TO RE-START TODAY AT 0700H. PLATELET UP TO 70K, HEPARIN DRIP STARTED AND HELD AT 0400H FOR POSSIBLE A-LINE INSERTION. NO BLEEDING NOTED. CONTINUE MONITORING AND TOWARDS GOALS. VERSED AND FENTANYL DRIP AT MAX DOSE. PRECEDEX DRIP AT 1MIC AND PROPOFOL AT 30MICS. LATEST O2 SAT 93%.
--- NOTE | 2021-01-10 04:51 | NUR ---
LEVO DRIP AT [facility].
[2021-01-10 05:55] LABS: HEMATOCRIT 24.2 % (42.0-52.0); HEMOGLOBIN 7.9 gm/dL (14.0-18.0); MCH 28.6 pg (26.0-34.0); MCHC 32.6 g/dL (28.0-37.0); MCV 87.9 fL (80.0-100.0); MPV 8.9 fl. (7.2-11.1); NUCLEATED RBCS 1 /100WBC; RBC 2.75 mil/uL (4.50-6.00); RDW-CV 15.3 % (10.5-14.5); WBC 25.4 thou/uL (4.0-11.0)
[2021-01-10 06:01] LABS: PLATELET COUNT* 42 thou/uL (150-400)
[2021-01-10 06:02] LABS: INR 1.4; PROTIME 14.5 Seconds (9.20-11.50)
[2021-01-10 06:04] LABS: ALBUMIN 2.3 g/dL (3.4-5.0); CALCIUM 7.7 mg/dL (8.5-10.1); CREATININE 2.3 mg/dL (0.6-1.3); MAGNESIUM 2.1 mg/dL (1.8-2.4); POTASSIUM 5.3 mmol/L (3.5-5.1); TOTAL BILIRUBIN 0.6 mg/dL (<0.1-1.0)
[2021-01-10 06:52] LABS: ABSOLUTE LYMPHOCYTES 0.3 thou/uL (0.8-5.3); ABSOLUTE MONOCYTES 0.8 thou/uL (0.0-1.2); ABSOLUTE NEUTROPHILS 24.4 thou/uL (1.6-8.1); MYELOCYTES 2 %; OVALOCYTES 1+; PLATELET ESTIMATE DECREASED
[2021-01-10 06:53] LABS: ANISOCYTOSIS 1+; HYPOCHROMASIA 1+; POIKILOCYTOSIS 1+; POLYCHROMASIA Occasional; SCHISTOCYTES Occasional
--- NOTE | 2021-01-10 08:42 | NUR ---
Case and plan of care reviewed with MD each weekday during patient's length of stay. Continue plan of care per MD orders for current dx.Remains on vent 100 FiO2. IV pressors and sedation gtts. CM will continue to follow for dc planning needs
--- NOTE | 2021-01-10 10:06 | CON ---
[address] [address] CONSULTATION Name: TOOTIE PRIETO Room: [address] IN M.R.#: [id number] Admission: 12/29/20 Attend Phys: Freddy Ashraf Discharge: Date of : 50 Report #: [id number] THIS REPORT FOR: cc: ZO - Madeline family physician/PCP ZO - Madeline family physician/PCP Hayley Shore MD ~ DATE OF CONSULTATION: 01/07/2021 NEPHROLOGY CONSULTATION REFERRING PHYSICIAN: Naeem Dolan DO REASON FOR CONSULTATION: Acute kidney injury. HISTORY OF PRESENT ILLNESS: A 70-year-old gentleman who was admitted with shortness of breath. He was diagnosed with COVID-19 one week ago. He apparently received a second dose of Moderna shot in July. He is currently intubated and on vasopressors, 100% FIO2, 12, PEEP. He is on 11 mcg of Levophed. His creatinine was 2.7 on admission, baseline is unknown. I did discuss with his son, Dionte, who provides some history and there is no known underlying significant kidney disease, but creatinine has gone up to 7.4 yesterday and 7.9 today with decreased urine output. He is anemic and thrombocytopenic. He is receiving transfusions. REVIEW OF SYSTEMS: Constitutional, psych, heme, eyes, ENT, respiratory, cardiac, GI, , endocrine, all negative except as documented above and as best can be ascertained. FAMILY HISTORY: Nonpertinent for a 70-year-old gentleman. SOCIAL HISTORY: No tobacco. CURRENT MEDICATIONS: Reviewed. PHYSICAL EXAMINATION: VITAL SIGNS: Blood pressure is 128/56, pulse 95, respirations 20, temperature 37.7. GENERAL: Intubated and sedated. ENT: Endotracheal tube in place. Eyes closed. Ears externally normal. CARDIAC: Regular rate. LUNGS: Diminished. EXTREMITIES: Nontender. MUSCULOSKELETAL: Mild swelling. NEUROLOGIC: [place] [address] CONSULTATION Name: TOOTIE PRIETO Room: [address] IN [facility].#: [id number] Admission: 12/29/20 Attend Phys: Freddy Ashraf Discharge: Date of : 50 Report #: [id number] LABORATORY DATA: White cell count 16, hemoglobin 6.9, platelets 65. Platelets are down to 13 last night. Sodium 139, potassium 5.2, chloride 106, bicarbonate 19, BUN 106, creatinine 7.9, glucose 147, calcium 6.8, phosphorus 5.1, magnesium 2.2, albumin 2.2. AB.36, 29, 16. VBGs done previously consistent with a metabolic acidosis. ASSESSMENT AND PLAN: 1. Acute kidney injury in setting of COVID-19 infection and shock. Baseline creatinine unknown. Admission creatinine 2.7 up to 7.9 on 01/07. UA noted with 2+ protein, 3+ blood. 2. Anemia, acute with a drop in hemoglobin to 6.9 on 01/07. 3. Thrombocytopenia, severe, with the platelets of 13 on 01/06. 4. Hematuria. 5. Metabolic acidosis. 6. Hypoalbuminemia with an albumin of 1.5. 7. Chronic obstructive pulmonary disease. 8. COVID-19, was vaccinated with Moderna. 9. History of celiac disease. PLAN: 1. Vasopressor support. 2. On steroids. 3. I did discuss with his son, Dionte over the phone. Informed consent was obtained to proceed with CRRT with ____ or interventional radiology for a temporary dialysis catheter. Plan CVVH tonight with I's equal to O's, no net fluid removal. 4. We will discontinue IV fluid with bicarbonate, once CRRT is started. 5. Case was discussed with Dr. Husain as well as database management system specialist. The patient is critically ill, 35 minutes the patient's care time spent. Prognosis is guarded. <ELECTRONICALLY SIGNED> By: Hayley Shore MD 01/10/21 1006 [id number] [id number] Shore MD /nt
[2021-01-10 11:53] LABS: PO2 54.6 mmHg (75.0-100.0)
[2021-01-10 14:38] LABS: BE -2.8 mmol/L (-2 to +3)
[2021-01-10 14:49] LABS: PCO2 54.2 mmHg (35.0-45.0); pH 7.268 (7.340-7.450)
[2021-01-10 14:50] LABS: PO2 47.8 mmHg (75.0-100.0)
[2021-01-10 16:06] LABS: BE -6.1 mmol/L (-2 to +3)
[2021-01-10 16:09] LABS: pH 7.197 (7.340-7.450)
[2021-01-10 16:10] LABS: PCO2 58.1 mmHg (35.0-45.0); PO2 56.6 mmHg (75.0-100.0)
[2021-01-10 17:19] LABS: BE -4.7 mmol/L (-2 to +3); PO2 60.2 mmHg (75.0-100.0)
[2021-01-10 17:28] LABS: pH 7.214 (7.340-7.450)
[2021-01-10 17:29] LABS: PCO2 58.8 mmHg (35.0-45.0)
[2021-01-10 17:34] LABS: BE -0.7 mmol/L (-2 to +3)
[2021-01-10 17:37] LABS: PCO2 68.7 mmHg (35.0-45.0); PO2 49.7 mmHg (75.0-100.0); pH 7.223 (7.340-7.450)
--- NOTE | 2021-01-10 20:09 | NUR ---
EGD DONE AT THE BEDSIDE. SON AND EX VISITED TODAY, OKAYED BY VERENA MCCLENDON AND HAD A DISCUSSION WITH DR STORY, DR AVENDANO AND DR GARRISON. CONTINUE CURRENT PLAN OF CARE FOR NOW. CRRT OFF AND ON HEMODIALYSIS CURRENTLY. PT NOT SYNCING WITH THE VENT AND VERY ACIDOTIC, VENT SETTINGS CHANGED THROUGHOUT THE DAY, PLAN TO KEEP HIM WELL SEDATED PER DR AVENDANO. TUBE FEEDINGS RESTARTED AT GOAL, TOLERATING WELL.
[2021-01-11] VITALS (8 sets, daily range): BP systolic 101–140; BP diastolic 35–46
--- NOTE | 2021-01-11 04:09 | NUR ---
ASSUMED CARE AT 1910H, ON VENT AT 1005 AND TOLERATED. SEDATIONS MAX DOSE. LEVO AT 3MICS AND OFF AT 2100H. HEMODIALYSIS DONE AT 2014H WITH 2L OUT. FEVERISH EARLY IN MY SHIFT SPONGE BATH DONE. PT DID NOT TOLERATE PRONE POSITION, PULMO AWARE AND BACK TO SUPINE. PT DESAT WHEN TURNED AND TAKES TIME TO RECOVER. AFTER XRAY, PT DESAT AND HYPOTENSIVE. LEVO DRIP RE-STARTED. PT TOLERATED WITH OUT PROPOFOL SEDATION. CONTINUE MONITORING AND TOWARDS GOALS. LEVO AT 2MICS.
[2021-01-11 05:55] LABS: ABSOLUTE BASOPHILS 0.1 thou/uL (0.0-0.2); ABSOLUTE LYMPHOCYTES 0.4 thou/uL (0.8-5.3); ABSOLUTE MONOCYTES 0.5 thou/uL (0.0-1.2); ABSOLUTE NEUTROPHILS 32.7 thou/uL (1.6-8.1); BASOPHILS 0.3 %; EOSINOPHILS 0.1 %; HEMATOCRIT 23.4 % (42.0-52.0); HEMOGLOBIN 7.6 gm/dL (14.0-18.0); LYMPHOCYTES 1.2 %; MCH 28.6 pg (26.0-34.0); MCHC 32.3 g/dL (28.0-37.0); MCV 88.6 fL (80.0-100.0); MONOCYTES 1.5 %; MPV 9.7 fl. (7.2-11.1); NUCLEATED RBCS 4 /100WBC; POLYS 96.9 %; RBC 2.64 mil/uL (4.50-6.00); RDW-CV 15.3 % (10.5-14.5); WBC 33.7 thou/uL (4.0-11.0)
[2021-01-11 06:07] LABS: APTT 29.8 Seconds (25.0-31.3)
[2021-01-11 06:08] LABS: PLATELET COUNT* 16 thou/uL (150-400)
[2021-01-11 06:15] LABS: CALCIUM 7.3 mg/dL (8.5-10.1); CREATININE 2.8 mg/dL (0.6-1.3); MAGNESIUM 1.8 mg/dL (1.8-2.4); POTASSIUM 4.7 mmol/L (3.5-5.1); TOTAL BILIRUBIN 0.6 mg/dL (<0.1-1.0); TOTAL PROTEIN 4.8 g/dL (6.4-8.2)
[2021-01-11 08:26] LABS: BE -1.2 mmol/L (-2 to +3); PO2 62.5 mmHg (75.0-100.0)
[2021-01-11 08:29] LABS: PCO2 57.2 mmHg (35.0-45.0); pH 7.274 (7.340-7.450)
--- NOTE | 2021-01-11 18:54 | NUR ---
FAMILY AT BEDSIDE, DISCUSSED PLAN OF CARE AND PROGNOSIS, FAMILY DECIDED TO MOVE PATIENT TO COMFORT CARE. PATIENT EXTUBATED AND PRONOUCED AT 1642. POST-MORTEM CARE COMPLETED PATIENT AWAITING TRANSFER TO [facility].
== END 2021-01-11 16:42 | DRG 870 ==
LOC: M.ERS 09:56 → M.ORTHSURG 10:39 → M.TBA-ER 10:39 → M.ORTHSURG 12:34 → M.ICU 01-04 12:03
PROVIDERS: Family Medicine; Internal Medicine; Internal Medicine Critical Care Medicine; Internal Medicine Gastroenterology; Internal Medicine Hematology & Oncology; Internal Medicine Nephrology; ADMIT Internal Medicine; ATTEND Internal Medicine
PROC: 5A0935A Assistance with Respiratory Ventilation, Less than 24 Consecutive Hours, High Flow/Velocity Cannula (ICD-10-PCS; principal; 2020-12-29)
PROC: 5A0935A Assistance with Respiratory Ventilation, Less than 24 Consecutive Hours, High Flow/Velocity Cannula (ICD-10-PCS; 2020-12-30)
PROC: 5A09357 Assistance with Respiratory Ventilation, Less than 24 Consecutive Hours, Continuous Positive Airway Pressure (ICD-10-PCS; 2020-12-31)
PROC: 5A0935A Assistance with Respiratory Ventilation, Less than 24 Consecutive Hours, High Flow/Velocity Cannula (ICD-10-PCS; 2020-12-31)
PROC: 5A0945A Assistance with Respiratory Ventilation, 24-96 Consecutive Hours, High Flow/Velocity Cannula (ICD-10-PCS; 2021-01-01)
PROC: B548ZZA Ultrasonography of Superior Vena Cava, Guidance (ICD-10-PCS; 2021-01-02)
PROC: 02HV33Z Insertion of Infusion Device into Superior Vena Cava, Percutaneous Approach (ICD-10-PCS; 2021-01-02)
PROC: 5A0935A Assistance with Respiratory Ventilation, Less than 24 Consecutive Hours, High Flow/Velocity Cannula (ICD-10-PCS; 2021-01-03)
PROC: 5A0935A Assistance with Respiratory Ventilation, Less than 24 Consecutive Hours, High Flow/Velocity Cannula (ICD-10-PCS; 2021-01-04)
PROC: 0BH17EZ Insertion of Endotracheal Airway into Trachea, Via Natural or Artificial Opening (ICD-10-PCS; 2021-01-04)
PROC: 5A1955Z Respiratory Ventilation, Greater than 96 Consecutive Hours (ICD-10-PCS; 2021-01-04)
PROC: 30233R1 Transfusion of Nonautologous Platelets into Peripheral Vein, Percutaneous Approach (ICD-10-PCS; 2021-01-07)
PROC: B548ZZA Ultrasonography of Superior Vena Cava, Guidance (ICD-10-PCS; 2021-01-07)
PROC: 02HV33Z Insertion of Infusion Device into Superior Vena Cava, Percutaneous Approach (ICD-10-PCS; 2021-01-07)
PROC: 5A1D70Z Performance of Urinary Filtration, Intermittent, Less than 6 Hours Per Day (ICD-10-PCS; 2021-01-07)
PROC: 30233N1 Transfusion of Nonautologous Red Blood Cells into Peripheral Vein, Percutaneous Approach (ICD-10-PCS; 2021-01-07)
PROC: 0DJ08ZZ Inspection of Upper Intestinal Tract, Via Natural or Artificial Opening Endoscopic (ICD-10-PCS; 2021-01-10)
DX: A41.9 Sepsis, unspecified organism (principal); U07.1 COVID-19; J12.82 Pneumonia due to coronavirus disease 2019; J80 Acute respiratory distress syndrome; D65 Disseminated intravascular coagulation [defibrination syndrome]; J44.1 Chronic obstructive pulmonary disease with (acute) exacerbation; J44.0 Chronic obstructive pulmonary disease with (acute) lower respiratory infection; E87.1 Hypo-osmolality and hyponatremia; G93.40 Encephalopathy, unspecified; N39.0 Urinary tract infection, site not specified; N17.9 Acute kidney failure, unspecified; R31.9 Hematuria, unspecified; E88.09 Other disorders of plasma-protein metabolism, not elsewhere classified; E83.51 Hypocalcemia; K21.00 Gastro-esophageal reflux disease with esophagitis, without bleeding; K29.80 Duodenitis without bleeding; K25.9 Gastric ulcer, unspecified as acute or chronic, without hemorrhage or perforation; I95.9 Hypotension, unspecified; D50.0 Iron deficiency anemia secondary to blood loss (chronic); E87.5 Hyperkalemia; Z79.82 Long term (current) use of aspirin; Z91.012 Allergy to eggs; Z79.899 Other long term (current) drug therapy